=== PATIENT | female | born 1980 | race Caucasian/White ===

== ENCOUNTER 2016-08-06 15:43 | Emergency (ER) | payer SELFPAY ==
[~2016-08-06] VITALS: Ht 154.9 cm; Wt 78.0 kg
[~2016-08-06 15:43] MED LIST: CYCL10TA2 PO; NAPR500T8 PO
[2016-08-06 16:20] VITALS: BP 127/72
--- NOTE | 2016-08-06 17:08 | PHYS DOC ---
Past Medical History Past Medical History: Other Additional Past Medical Histor: LUPUS Past Surgical History: Cholecystectomy, Hysterectomy, Tonsillectomy Alcohol Use: Occasionally Drug Use: None Adult General Chief Complaint Chief Complaint: FOOT INJURY PAIN [facility] HPI Patient is a 35 year old female presents to the emergency taking that approximately 2-3 days ago she was walking up the stairs when she tripped bending her toes backwards. She states she's been having increased pain and swelling as well as bruising along the left great toe and in the middle tarsal areas of the first through third. Patient states she's attempted to ambulate with increased pain and discomfort. She is taken ibuprofen for the pain and discomfort with minimal relief. Patient does have range of motion with the toes. Cap refill brisk less than 2 seconds. Good sensation noted. Review of Systems Review of Systems Constitutional: Denies fever or chills [] Eyes: Denies change in visual acuity, redness, or eye pain [] HENT: Denies nasal congestion or sore throat [] Respiratory: Denies cough or shortness of breath [] Cardiovascular: No additional information not addressed in HPI [] GI: Denies abdominal pain, nausea, vomiting, bloody stools or diarrhea [] : Denies dysuria or hematuria [] Musculoskeletal: Denies back pain. Left foot pain and discomfort Integument: Denies rash or skin lesions [] Neurologic: Denies headache, focal weakness or sensory changes [] Allergies Allergies Allergies Coded Allergies Type Severity Reaction Last Updated Verified Penicillins Allergy Intermediate 04/25/16 Yes Physical Exam Physical Exam Constitutional: Well developed, well nourished, no acute distress, non-toxic appearance. [] HENT: Normocephalic, atraumatic, bilateral external ears normal, oropharynx moist, no oral exudates, nose normal. [] Eyes: PERRLA, EOMI, conjunctiva normal, no discharge. [] Neck: Normal range of motion, no tenderness, supple, no stridor. [] Cardiovascular:Heart rate regular rhythm, no murmur [] Lungs & Thorax: Bilateral breath sounds clear to auscultation [] Skin: Warm, dry, no erythema, no rash. [] Back: No tenderness Extremities: Left foot tenderness, no cyanosis, no clubbing, ROM intact, no edema. Patient was noted to have bruising along the first toe into the metatarsal area slight swelling and tenderness with bruising noted along the second metatarsal area. Peripheral pulses 2+ cap refill brisk less than 2 seconds. Neurologic: Alert and oriented X 3, normal motor function, normal sensory function, no focal deficits noted. [] Psychologic: Affect normal, judgement normal, mood normal. [] Current Patient Data Vital Signs Vital Signs Date Time Temp Pulse Resp B/P Pulse Ox O2 Delivery O2 Flow Rate FiO2 08/06/16 16:20 97.9 69 18 100 Room Air 97.9 EKG EKG [] Radiology/Procedures Radiology/Procedures [facility] [address] [place] [address] IMAGING REPORT Signed PATIENT: VIVIEN JOY ACCOUNT: [id number] : 1980 LOCATION: ER AGE: 35 SEX: F EXAM STATUS: PRE ER ORD. PHYSICIAN: BONIFACIO CUMMINGS NP REASON: pain after falling going up stairs PROCEDURE: FOOT LEFT 3V Three-view study of the left foot History: Pain and bruising and swelling at base of big toe and up into metatarsals. Patient fell 2 days ago. Findings: No acute fracture or dislocation or osteolytic process is seen. IMPRESSION: No acute fracture. DICTATED and SIGNED BY: BRODERICK TAN MD DATE: 08/06/16 1704 CC: BONIFACIO CUMMINGS NP; YESIKA ROSA MD ~ [] Course & Med Decision Making Course & Med Decision Making Pertinent Labs and Imaging studies reviewed. (See chart for details) Patient was recommended to continue to take ibuprofen for pain and discomfort. Patient will be placed in a posterior short leg splint and placed on crutches with recommendations to follow-up with orthopedic within the next week. Patient will also be provided with hydrocodone for severe pain and discomfort. Ice packs on 20 minutes off 20 minutes several times a day elevation as much as possible. Patient was provided with discharge instructions treatment regimens and follow-up recommendations. She was provided with signs and symptoms to return back to emergency department. Patient agrees with treatment regimen. [] Dragon Disclaimer Dragon Disclaimer This electronic medical record was generated, in whole or in part, using a voice recognition dictation system. Departure Departure Impression: Primary Impression: Contusion of toe of left foot Additional Impression: Sprain of left foot Disposition: 01 HOME, SELF-CARE Condition: STABLE Referrals: YESIKA ROSA MD (PCP) DINORAH WARE MD Patient Instructions: Crutch Use, [id number], Foot Contusion, [id number], Foot Sprain-Brief, Splint Care, [id number] Additional Instructions: Home to rest Ice packs on 20 minute and off 20 minutes several times a day Elevation as much as possible Keep the splint clean and dry Ibuprofen 800 mg every 8 hours with food stop taking if you develop upset stomach [place] for severe pain and discomfort, this medication will cause drowsiness do not take if you need to be alert and oriented. Followup with orthopedic in 1 week Return to emergency department as needed for signs and symptoms that become worse. Scripts Hydrocodone/Apap 5-325 ([place] 5-325 Tablet)1 Each Tablet1 Tab PO PRN Q6HRS PRN PAIN #10 TAB Prov:BONIFACIO CUMMINGS NP 08/06/16 Splinting Splinting : Location: left foot Hand-Made Type: orthoglass Splint: short posterior leg Pre-Proc Neuro Vasc Exam: normal Post-Proc Neuro Vasc Exam: normal Problem Qualifiers BONIFACIO CUMMINGS NP Aug 06, 2016 17:08
[2016-08-06] MEDS ORDERED: HYDR-971 PO (17:13)
== END 2016-08-06 18:10 | disposition home or self-care (01) ==
LOC: ER 15:43
DX: S93.522A Sprain of metatarsophalangeal joint of left great toe, initial encounter (principal); Z88.0 Allergy status to penicillin; W10.8XXA Fall (on) (from) other stairs and steps, initial encounter; Y93.89 Activity, other specified; Y99.8 Other external cause status; Y92.89 Other specified places as the place of occurrence of the external cause
CPT/HCPCS: 29515; 73630; 99284-25

== ENCOUNTER 2016-10-18 10:22 | Emergency (ER) | payer SELFPAY ==
[~2016-10-18] VITALS: Ht 154.9 cm; Wt 77.1 kg
[~2016-10-18 10:22] MED LIST changes: +HYDR-971 PO
[2016-10-18] MEDS ORDERED: FENTANYL PF 100 MCG/2 ML VIAL. IV PRN (10:45)
[2016-10-18] MEDS ORDERED: IV NORMAL SALINE 1000ML BAG 1,000 ML IV SCH (10:45)
[2016-10-18 11:08] LABS: BILIRUBIN,URINE NEGATIVE (NEG); GLUCOSE,URINE NEGATIVE (NEG); NITRITE,URINE NEGATIVE (NEG); PROTEIN,URINE NEGATIVE (NEG-TRACE)
[2016-10-18 11:18] LABS: BACTERIA,URINE 0 /HPF (0-FEW); SQUAMOUS EPITHELIAL CELL,UR MOD /LPF; WBC,URINE 0 /HPF (0-4)
[2016-10-18 11:22] LABS: BASO % 0 % (0-3); EOS % 1 % (0-3); HEMATOCRIT 44.7 % (36.0-47.0); HEMOGLOBIN 14.9 g/dL (12.0-15.5); LYMPH # 1.2 x10^3/uL (1.0-4.8); LYMPH % 16 % (24-48); MEAN CORPUSCULAR HEMOGLOBIN 31 pg (25-35); MEAN CORPUSCULAR HGB CONC 33 g/dL (31-37); MEAN CORPUSCULAR VOLUME 93 fL (79-100); MONO % 6 % (0-9); NEUT % 77 % (31-73); PLATELET COUNT 180 x10^3/uL (140-400); RED BLOOD COUNT 4.78 x10^6/uL (3.50-5.40); WHITE BLOOD COUNT 7.4 x10^3/uL (4.0-11.0)
[2016-10-18] MEDS ORDERED: ONDANSETRON PF 4 MG/2 ML VIAL. IV ONE (11:30)
[2016-10-18] MEDS ORDERED: FAMOTIDINE 20 MG/2 ML VIAL IVP ONE (11:30)
--- NOTE | 2016-10-18 11:48 | PHYS DOC ---
Past Medical History Past Medical History: Other Additional Past Medical Histor: LUPUS Past Surgical History: Cholecystectomy, Hysterectomy, Tonsillectomy Additional Information: 1 ppd Alcohol Use: Occasionally Drug Use: None Adult General Chief Complaint Chief Complaint: NAUSEA/VOMITING/[facility] HPI HPI Patient is a 36 year old female who presents with complaint of nausea, vomiting , and diarrhea. Patient states that her symptoms gradually started last night but became severely worse earlier this morning. Patient states she has had multiple episodes of vomiting and diarrhea since onset. Patient also has had multiple episodes of frequent urination since onset of symptoms. Patient denies dysuria or hematuria. Patient took Aleve earlier today to help with symptoms with no significant relief. Patient is status post hysterectomy 5 years ago. Patient notes that she has had worsening low back pain since onset of symptoms. Patient currently rates her pain as 7 out of 10. Review of Systems Review of Systems Constitutional: Denies fever or chills [] Eyes: Denies change in visual acuity, redness, or eye pain [] HENT: Denies nasal congestion or sore throat [] Respiratory: Denies cough or shortness of breath [] Cardiovascular: Denies chest pain or edema [] GI: Nausea, vomiting, diarrhea, denies abdominal pain [] : Denies dysuria or hematuria [] Musculoskeletal: Low back pain [] Integument: Denies rash or skin lesions [] Neurologic: Denies headache, focal weakness or sensory changes [] Current Medications Current Medications Current Medications Medications (Trade) Dose Ordered Sig/Diana Start Time Stop Time Status Last Admin Dose Admin Famotidine (Pepcid) 20 mg 1X ONCE 10/18/16 11:30 10/18/16 11:31 DC 10/18/16 11:06 20 MG Fentanyl Citrate 50 mcg 50 mcg PRN Q15MIN PRN 10/18/16 10:45 10/19/16 10:44 10/18/16 11:09 50 MCG Ondansetron HCl (Zofran) 4 mg 1X ONCE 10/18/16 11:30 10/18/16 11:31 DC 10/18/16 11:07 4 MG Sodium Chloride (Iv Sodium Chloride 0.9% 1000ml Bag) 1,000 ml @ 1,000 mls/hr Q1H 10/18/16 10:45 10/18/16 11:44 DC 10/18/16 11:04 1,000 MLS/HR Allergies Allergies Allergies Coded Allergies Type Severity Reaction Last Updated Verified Penicillins Allergy Intermediate 04/25/16 Yes Physical Exam Physical Exam Constitutional: Alert, afebrile, appears in mild to moderate discomfort. [] HENT: Normocephalic, atraumatic, bilateral external ears normal, oropharynx moist, no oral exudates, nose normal. [] Eyes: PERRLA, EOMI, conjunctiva normal, no discharge. [] Neck: Normal range of motion, no tenderness, supple, no stridor. [] Cardiovascular:Heart rate regular rhythm, no murmur [] Lungs & Thorax: Bilateral breath sounds clear to auscultation [] Abdomen: Bowel sounds normal, soft, no tenderness, no masses, no pulsatile masses. [] Skin: Warm, dry, no erythema, no rash. [] Back: Bilateral lower lumbar paraspinous muscle tenderness palpation, no midline tenderness, no flank ecchymosis, no CVA tenderness. [] Extremities: No tenderness, no cyanosis, no clubbing, ROM intact, no edema. [] Neurologic: Alert and oriented X 3, normal motor function, normal sensory function, no focal deficits noted. [] Current Patient Data Vital Signs Vital Signs Date Time Temp Pulse Resp B/P Pulse Ox O2 Delivery O2 Flow Rate FiO2 10/18/16 11:09 18 97 Room Air 10/18/16 10:25 97.7 93 130/72 97.7 Lab Values Laboratory Tests Test 10/18/16 10:55 10/18/16 11:15 Urine Collection Type Unknown Urine Color Yellow Urine Clarity Cloudy Urine pH 7.0 Urine Specific Disney 1.025 Urine Protein Negativemg/dL (NEG-TRACE) Urine Glucose (UA) Negativemg/dL (NEG) Urine Ketones (Stick) Negativemg/dL (NEG) Urine Blood Trace (NEG) Urine Nitrite Negative (NEG) Urine Bilirubin Negative (NEG) Urine Urobilinogen Dipstick 1.0mg/dL (0.2 mg/dL) Urine Leukocyte Esterase Trace (NEG) Urine RBC 3-5/HPF (0-2) Urine WBC 0/HPF (0-4) Urine Squamous Epithelial Cells Mod/LPF Urine Bacteria 0/HPF (0-FEW) Urine Mucus Marked/LPF White Blood Count 7.4x10^3/uL (4.0-11.0) Red Blood Count 4.78x10^6/uL (3.50-5.40) Hemoglobin 14.9g/dL (12.0-15.5) Hematocrit 44.7% (36.0-47.0) Mean Corpuscular Volume 93fL (79-100) Mean Corpuscular Hemoglobin 31pg (25-35) Mean Corpuscular Hemoglobin Concent 33g/dL (31-37) Red Cell Distribution Width 13.0% (11.5-14.5) Platelet Count 180x10^3/uL (140-400) Neutrophils (%) (Auto) 77% (31-73) H Lymphocytes (%) (Auto) 16% (24-48) L Monocytes (%) (Auto) 6% (0-9) Eosinophils (%) (Auto) 1% (0-3) Basophils (%) (Auto) 0% (0-3) Neutrophils # (Auto) 5.7x10^3uL (1.8-7.7) Lymphocytes # (Auto) 1.2x10^3/uL (1.0-4.8) Monocytes # (Auto) 0.4x10^3/uL (0.0-1.1) Eosinophils # (Auto) 0.1x10^3/uL (0.0-0.7) Basophils # (Auto) 0.0x10^3/uL (0.0-0.2) Sodium Level 139mmol/L (136-145) Potassium Level 4.3mmol/L (3.5-5.1) Chloride Level 103mmol/L (98-107) Carbon Dioxide Level 26mmol/L (21-32) Anion Gap 10 (6-14) Blood Urea Nitrogen 10mg/dL (7-20) Creatinine 0.7mg/dL (0.6-1.0) Estimated GFR (Cockcroft-Gault) 95.8 BUN/Creatinine Ratio 14 (6-20) Glucose Level 102mg/dL (70-99) H Calcium Level 9.2mg/dL (8.5-10.1) Total Bilirubin 0.5mg/dL (0.2-1.0) Aspartate Amino Transferase (AST) 24U/L (15-37) Alanine Aminotransferase (ALT) 29U/L (14-59) Alkaline Phosphatase 59U/L (46-116) Total Protein 7.9g/dL (6.4-8.2) Albumin 3.8g/dL (3.4-5.0) Albumin/Globulin Ratio 0.9 (1.0-1.7) L Lipase 83U/L (73-393) Laboratory Tests 10/18/16 11:15 Laboratory Tests 10/18/16 11:15 EKG EKG Not performed [] Radiology/Procedures Radiology/Procedures Not performed [] Course & Med Decision Making Course & Med Decision Making Pertinent Labs and Imaging studies reviewed. (See chart for details) The patient was given IV fluids, fentanyl, Pepcid, and Zofran. On reevaluation, patient states her symptoms have improved at this time. Patient's blood work is unremarkable and patient's urine does not show convincing signs of urinary tract infection. Patient's symptoms appear consistent with viral gastroenteritis. The patient will be continued on outpatient treatment with Zofran, Pepcid, and ibuprofen. Advised follow-up in 3 days with patient's primary physician and return to emergency department for any worsening symptoms. Patient voiced understanding and in agreement with treatment plan. Dragon Disclaimer Dragon Disclaimer This electronic medical record was generated, in whole or in part, using a voice recognition dictation system. Departure Departure Impression: Primary Impression: Nausea and vomiting Additional Impressions: Diarrhea Low back pain Disposition: 01 HOME, SELF-CARE Condition: IMPROVED Referrals: NO PCP (PCP) Patient Instructions: Back Pain, Adult, Diarrhea, Nausea and Vomiting Additional Instructions: Follow-up with your primary doctor in 3-5 days. Return to the emergency department for any worsening symptoms. Scripts Ibuprofen 600 Mg [id number] Mg PO Q6HRS PRN INFLAMMATION #30 TAB Prov:SHANAE RICKS MD 10/18/16 Famotidine (Pepcid)20 Mg [id number] Mg PO BID #30 TAB Prov:SHNAAE RICKS MD 10/18/16 Ondansetron (Zofran Odt)4 Mg Tab.rapdis1 Tab SL Q8HRS PRN NAUSEA/VOMITING #15 TAB Prov:SHANAE RICKS MD 10/18/16 Problem Qualifiers Primary Impression: Nausea and vomiting Vomiting type: unspecified Vomiting Intractability: non-intractable Qualified Code: R11.2 - Nausea with vomiting, unspecified Additional Impressions: Diarrhea Diarrhea type: presumed infectious Qualified Code: A09 - Infectious gastroenteritis and colitis, unspecified Low back pain Chronicity: acute Back pain laterality: bilateral Sciatica presence: without sciatica Qualified Code: M54.5 - Low back pain SHANAE RICKS MD Oct 18, 2016 11:48
[2016-10-18 11:56] LABS: CALCIUM 9.2 mg/dL (8.5-10.1); CREATININE 0.7 mg/dL (0.6-1.0); GFR 95.8
[2016-10-18 11:59] LABS: POTASSIUM 4.3 mmol/L (3.5-5.1)
[2016-10-18 12:02] LABS: ALBUMIN 3.8 g/dL (3.4-5.0); ALBUMIN/GLOBULIN RATIO 0.9 (1.0-1.7); TOTAL BILIRUBIN 0.5 mg/dL (0.2-1.0); TOTAL PROTEIN 7.9 g/dL (6.4-8.2)
[2016-10-18] MEDS ORDERED: IBUP-1007 PO (12:35)
[2016-10-18] MEDS ORDERED: FAMO-63 PO (12:35)
[2016-10-18] MEDS ORDERED: ONDA4TAB10 SL (12:35)
[2016-10-18 12:40] VITALS: BP 126/72
== END 2016-10-18 12:40 | disposition home or self-care (01) ==
LOC: ER 10:22
DX: A09 Infectious gastroenteritis and colitis, unspecified (principal); R11.2 Nausea with vomiting, unspecified; R35.0 Frequency of micturition; M54.5 Low back pain; Z90.49 Acquired absence of other specified parts of digestive tract; Z90.710 Acquired absence of both cervix and uterus; F17.200 Nicotine dependence, unspecified, uncomplicated; Z88.0 Allergy status to penicillin
CPT/HCPCS: 36415; 80053; 81001; 83690; 85027; 87086; 96361; 96374; 96375; 99284; J2405; J3010; J7030; S0028